=== PATIENT | male | born 1950 | race Caucasian/White ===

== ENCOUNTER 2023-01-09 14:14 | Emergency (ER) | payer MEDICARE, BC ==
[2023-01-09 14:48] LABS: Basophils % (A) 1 %; Eosinophils # (A) 0.2 k/uL (0-0.7); Eosinophils % (A) 3 %; HCT 41.7 % (39.0-53.0); Lymphocytes # (A) 1.7 k/uL (1.0-4.8); Lymphocytes % (A) 28 %; MCH 34.8 pg (25.0-35.0); MCHC 33.6 g/dL (31.0-37.0); MCV 103.6 fL (80.0-100.0); Macrocytosis Slight; Mean Platelet Volume 7.6; Monocytes # (A) 0.5 k/uL (0-1.0); Monocytes % (A) 8 %; Neutrophils # (A) 3.6 k/uL (1.3-7.7); Neutrophils % (A) 58 %; Platelet Count 152 k/uL (150-450); RBC 4.02 m/uL (4.30-5.90); RDW 13.2 % (11.5-15.5); WBC 6.2 k/uL (3.8-10.6)
--- NOTE | 2023-01-09 14:53 | CT ---
EXAMINATION TYPE: CT brain wo con for TPA CT DLP: 1201.6 mGycm, Automated exposure control for dose reduction was used. DATE OF EXAM: 01/09/2023 2:43 PM COMPARISON: None. CLINICAL INDICATION:Male, 72 years old with history of Neuro deficit, acute, stroke suspected, Neuro deficits, LT side. TECHNIQUE: Brain: Axial CT images of the brain were obtained with coronal and sagittal reformats created and rev iewed. Contrast used: None. Oral contrast used: None. FINDINGS: Brain: Extra-axial spaces: No abnormal extra-axial fluid collections. Ventricular system: Diffuse mild prominence likely related to brain volume loss. Cerebral parenchyma: No acute intraparenchymal hemorrhage or mass effect. The molina-white matter int erface appears maintained without clear CT evidence of acute infarct. Mild generalized atrophy and c hronic microvascular ischemic changes. . Cerebellum: No acute abnormality. Mass effect: No evidence of midline shift. Intracranial vasculature: Mild calcification of the siphons portions of the ICAs. No hyperdense MCA s ign suggested. Soft tissues: No acute finding. Partially seen plaque-like sulcation in the superficial soft tissues of the right preauricular region. Calvarium/osseous structures: No depressed skull fracture. Paranasal sinuses and mastoid air cells: Clear Visualized orbits: Orbital contents appear grossly intact. IMPRESSION: 1. No hemorrhage or other acute intracranial CT abnormality. 2. Mild atrophy and chronic microvascular ischemic changes.
[2023-01-09 14:56] LABS: Partial Thromboplastin Time 22.6 sec (22.0-30.0); Prothrombin Time 10.6 sec (10.0-12.5)
--- NOTE | 2023-01-09 14:59 | ED ---
Neuro HPI - General Chief Complaint: Neuro Symptoms/Deficit Stated Complaint: Neuro symptoms Time Seen by Provider: 01/09/23 14:32 Source: patient, RN notes reviewed Mode of arrival: ambulatory Limitations: no limitations - History of Present Illness Is the patient presenting with stroke symptoms?: Yes Initial Comments: 72-year-old male with no prior history of CVA who fell while going to bed last night and got up around 8:30 this morning and felt well but around the same time he started developing some slurred speech left upper extremity weakness and numbness and per his he had some slight asymmetry to left side of his face. 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 He seemed to feel as if he got somewhat better then around 11:00 started having recurrence of the symptoms now he states he believes his face feels better his agrees additionally his left arm is moving much better.. The patient was a code stroke upon arrival I did discuss the initial findings with Dr. Holley. Additional findings the patient does state that he has had testing in the past which showed some abnormalities with a right carotid artery some partial blockage. - Related Data Allergies/Adverse Reactions: Allergies Allergy/AdvReac Type Severity Reaction Status Date / Time No Known Allergies Allergy Verified 01/09/23 14:22 Review of Systems ROS Statement: Those systems with pertinent positive or pertinent negative responses have been documented in the HPI. ROS Other: All systems not noted in ROS Statement are negative. General Exam - General Exam Comments Initial Comments: This is a well-developed well-nourished awake alert oriented 4 male Limitations: no limitations General appearance: alert, in no apparent distress Head exam: Present: other (Patient does have congenital abnormalities or is having his face this is confirmed to be within normal limits per his and she states she believes the left side of the face has resolved to normal appearance) Eye exam: Present: normal appearance, PERRL, EOMI. Absent: scleral icterus, conjunctival injection, periorbital swelling ENT exam: Present: normal exam, mucous membranes moist Neck exam: Present: normal inspection, full ROM, other (No stridor JVD or bruits). Absent: tenderness, meningismus, lymphadenopathy Respiratory exam: Present: normal lung sounds bilaterally. Absent: respiratory distress, wheezes, rales, rhonchi, stridor Cardiovascular Exam: Present: regular rate, normal rhythm, normal heart sounds. Absent: systolic murmur, diastolic murmur, rubs, gallop, clicks GI/Abdominal exam: Present: soft, normal bowel sounds. Absent: distended, tenderness, guarding, rebound, rigid Extremities exam: Present: normal inspection, full ROM, normal capillary refill. Absent: tenderness, pedal edema, joint swelling, calf tenderness Back exam: Present: normal inspection Neurological exam: Present: alert, oriented X3, CN II-XII intact, motor sensory deficit (Slight past pointing noted on the left upper extremity compared to the right) Psychiatric exam: Present: normal affect, normal mood Skin exam: Present: warm, dry, intact, normal color. Absent: rash Stroke MDM - Lab Data Result diagrams: 01/09/23 14:35 01/09/23 14:35 Lab Results 01/09/23 01/09/23 01/09/23 Range/Units 14:35 14:35 14:35 WBC 6.2 (3.8-10.6) k/uL RBC 4.02 L (4.30-5.90) m/uL Hgb 14.0 (13.0-17.5) gm/dL Hct 41.7 (39.0-53.0) % MCV 103.6 H (80.0-100.0) fL MCH 34.8 (25.0-35.0) pg MCHC 33.6 (31.0-37.0) g/dL RDW 13.2 (11.5-15.5) % Plt Count 152 (150-450) k/uL MPV 7.6 Neutrophils % 58 % Lymphocytes % 28 % Monocytes % 8 % Eosinophils % 3 % Basophils % 1 % Neutrophils # 3.6 (1.3-7.7) k/uL Lymphocytes # 1.7 (1.0-4.8) k/uL Monocytes # 0.5 (0-1.0) k/uL Eosinophils # 0.2 (0-0.7) k/uL Basophils # 0.0 (0-0.2) k/uL Macrocytosis Slight PT 10.6 (10.0-12.5) sec INR 1.0 (<1.2) APTT 22.6 (22.0-30.0) sec Sodium 140 (137-145) mmol/L Potassium 4.4 (3.5-5.1) mmol/L Chloride 106 (98-107) mmol/L Carbon Dioxide 23 (22-30) mmol/L Anion Gap 11 mmol/L BUN 24 H (9-20) mg/dL Creatinine 1.21 (0.66-1.25) mg/dL Est GFR (CKD-EPI)AfAm 69 (>60 ml/min/1.73 sqM) Est GFR (CKD-EPI)NonAf 60 (>60 ml/min/1.73 sqM) Glucose 116 H (74-99) mg/dL Calcium 9.3 (8.4-10.2) mg/dL Total Bilirubin 0.6 (0.2-1.3) mg/dL AST 27 (17-59) U/L ALT 25 (4-49) U/L Alkaline Phosphatase 131 H (38-126) U/L Creatine Kinase 70 (55-170) U/L Troponin I (0.000-0.034) ng/mL Total Protein 6.9 (6.3-8.2) g/dL Albumin 4.1 (3.5-5.0) g/dL 01/09/23 Range/Units 14:35 WBC (3.8-10.6) k/uL RBC (4.30-5.90) m/uL Hgb (13.0-17.5) gm/dL Hct (39.0-53.0) % MCV (80.0-100.0) fL MCH (25.0-35.0) pg MCHC (31.0-37.0) g/dL RDW (11.5-15.5) % Plt Count (150-450) k/uL MPV Neutrophils % % Lymphocytes % % Monocytes % % Eosinophils % % Basophils % % Neutrophils # (1.3-7.7) k/uL Lymphocytes # (1.0-4.8) k/uL Monocytes # (0-1.0) k/uL Eosinophils # (0-0.7) k/uL Basophils # (0-0.2) k/uL Macrocytosis PT (10.0-12.5) sec INR (<1.2) APTT (22.0-30.0) sec Sodium (137-145) mmol/L Potassium (3.5-5.1) mmol/L Chloride (98-107) mmol/L Carbon Dioxide (22-30) mmol/L Anion Gap mmol/L BUN (9-20) mg/dL Creatinine (0.66-1.25) mg/dL Est GFR (CKD-EPI)AfAm (>60 ml/min/1.73 sqM) Est GFR (CKD-EPI)NonAf (>60 ml/min/1.73 sqM) Glucose (74-99) mg/dL Calcium (8.4-10.2) mg/dL Total Bilirubin (0.2-1.3) mg/dL AST (17-59) U/L ALT (4-49) U/L Alkaline Phosphatase (38-126) U/L Creatine Kinase (55-170) U/L Troponin I <0.012 (0.000-0.034) ng/mL Total Protein (6.3-8.2) g/dL Albumin (3.5-5.0) g/dL - NIH Stroke Scale 1a. Level of Consciousness: (0) alert 1b. LOC Questions: (0) answers correctly 1c. LOC Commands: (0) performs tasks correctly 2. Best Gaze: (0) normal 3. Visual: (0) no visual loss 4. Facial Palsy: (0) normal symmetrical movement 5a. Motor Arm Left: (0) no drift 5b. Motor Arm Right: (0) no drift 6a. Motor Leg Left: (0) no drift 6b. Motor Leg Right: (0) no drift 7. Limb Ataxia: (1) present 1 limb 8. Sensory: (0) normal 9. Best Language: (0) no aphasia 10. Dysarthria: (0) normal 11. Extinction/Inattention: (0) no abnormality - Medical Decision Making I did discuss case with the patient's also with Dr. 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 Holley. For further evaluation and treatment. The emergency department is notified. I did discuss the case with the transfer center at [facility] Dr. Sheikh to accept an ER physician. Patient be transferred by EMS.Was pt. sent in by a medical professional or institution (Dr., PA, PRESCHOOL HEAD TEACHER, urgent care, hospital, or group home...) When possible be specific @ -No Did you speak to anyone other than the patient for history (EMS, parent, family, police, friend...)? What history was obtained from this source @ -Patient's Did you review nursing and triage notes (agree or disagree)? Why? @ -I reviewed and agree with nursing and triage notes Were old charts reviewed (outside hosp., previous admission, EMS record, old EKG, old radiological studies, urgent care reports/EKG's, group home records)? Report findings @ - old charts were reviewed Differential Diagnosis (chest pain, altered mental status, abdominal pain women, abdominal pain men, vaginal bleeding, weakness, fever, dyspnea, syncope, headache, dizziness, GI bleed, back pain, seizure, CVA, palpatations, mental health, musculoskeletal)? @ -TAHMINA, TIA EKG interpreted by me (3pts min.). @ -As above EKG interpreted by me sinus rhythm 81 NH interval 186 QRS duration 102 QT/QTC 370/407 and complete right bundle-branch block borderline EKG X-rays interpreted by me (1pt min.). @ -None done CT interpreted by me (1pt min.). @ -CT brain and angiography interpreted by me evidence of right middle cervical artery occlusion and left carotid artery occlusion other vascular disease noted.] U/S interpreted by me (1pt. min.). @ -None done What testing was considered but not performed or refused? (CT, X-rays, U/S, labs)? Why? @ -None What meds were considered but not given or refused? Why? @ -None Did you discuss the management of the patient with other professionals (professionals i.e. LIZBETH Suero, PRESCHOOL HEAD TEACHER, lab, RT, psych nurse, social studies teacher, utility arborist, teacher, aoc operations intelligence officer, case consultant)? Give summary @ -Dr. Holley to [facility] stroke that worked patient will be transferred to [facility] intensive care unit Was smoking cessation discussed for >3mins.? @ -No Was critical care preformed (if so, how long)? @ -45 minutes Were there social determinants of health that impacted care today? How? (Homelessness, low income, unemployed, alcoholism, drug addiction, transportation, low edu. Level, literacy, decrease access to med. care, long term, rehab)? @ -No Was there de-escalation of care discussed even if they declined (Discuss DNR or withdrawal of care, Hospice)? DNR status @ -No What co-morbidities impacted this encounter? (DM, HTN, Smoking, COPD, CAD, Cancer, CVA, ARF, Chemo, Hep., AIDS, mental health diagnosis, sleep apnea, morbid obesity)? @ -Carotid vascular disease Was patient admitted / discharged? Hospital course, mention meds given and route, prescriptions, significant lab abnormalities, going to OR and other pertinent info. @ -hospital course patient was transferred to [facility] by ambulance Undiagnosed new problem with uncertain prognosis? @ -TAHMINA Drug Therapy requiring intensive monitoring for toxicity (Heparin, Nitro, Insulin, Cardizem)? @ -No Were any procedures done? @ -No Diagnosis/symptom? @ -CVA Acute, or Chronic, or Acute on Chronic? @ -Acute Uncomplicated (without systemic symptoms) or Complicated (systemic symptoms)? @ -Up located Side effects of treatment? @ -No Exacerbation, Progression, or Severe Exacerbation? @ -No Poses a threat to life or bodily function? How? (Chest pain, [place], [place], pneumonia, PE, COPD, DKA, ARF, appy, cholecystitis, CVA, Diverticulitis, Homicidal, Suicidal, threat to staff... and all critical care pts) @ -Possible threat, CVA/TIA - Radiology Data interpreted by me: Imaging chest x-ray is canceled this time CT angios shows evidence of right menstrual artery occlusion and left carotid artery occlusion and vascular disease. No evidence of acute bleeding. This is interpreted by me - EKG Data -: EKG Interpreted by Me Past Medical History Past Medical History: No Reported History History of Any Multi-Drug Resistant Organisms: None Reported Past Surgical History: Appendectomy, Cholecystectomy, Orthopedic Surgery Past Psychological History: No Psychological Hx Reported Smoking Status: Never smoker Past Alcohol Use History: None Reported Past Drug Use History: None Reported Course Vital Signs 01/09/23 14:18 Temperature 97.7 F Pulse Rate 82 Respiratory 18 Rate Blood Pressure 202/66 O2 Sat by Pulse 98 Oximetry Critical Care Time Critical Care Time: Yes Total Critical Care Time: 45 Disposition Clinical Impression: Cerebrovascular accident (CVA) Disposition: ADMITTED IP TO THIS HOSP Condition: Serious Referrals: Manny Staples DO [Primary Care Provider] - 1-2 days Decision Date: 01/09/23 Decision Time: 15:15
[2023-01-09] MEDS ORDERED: ASPIRIN 81 MG PO STA (15:03)
[2023-01-09] MEDS ORDERED: TICAGRELOR 90 MG TAB PO STA (15:03)
[2023-01-09 15:16] LABS: ALT 25 U/L (4-49); AST 27 U/L (17-59); African American GFR (CKD) 69 (>60 ml/min/1.73 sqM); Albumin 4.1 g/dL (3.5-5.0); Alkaline Phosphatase 131 U/L (38-126); Anion Gap 11 mmol/L; Blood Urea Nitrogen 24 mg/dL (9-20); Calcium 9.3 mg/dL (8.4-10.2); Carbon Dioxide 23 mmol/L (22-30); Chloride 106 mmol/L (98-107); Creatine Kinase 70 U/L (55-170); Glucose 116 mg/dL (74-99); Non-African American GFR(CKD) 60 (>60 ml/min/1.73 sqM); Potassium 4.4 mmol/L (3.5-5.1); Sodium 140 mmol/L (137-145); Total Bilirubin 0.6 mg/dL (0.2-1.3); Total Protein 6.9 g/dL (6.3-8.2)
--- NOTE | 2023-01-09 16:18 | CT ---
EXAMINATION TYPE: CT angio head neck CT DLP: 592.8 mGycm, Automated exposure control for dose reduction was used. DATE OF EXAM: 01/09/2023 3:00 PM COMPARISON: None. CLINICAL INDICATION:Male, 72 years old with history of Neuro deficit, acute, stroke suspected; PHH, L T side neuro deficits code stroke TECHNIQUE: Axially acquired helical CT angiogram of the head and neck was obtained with contrast. Axi al images are supplemented with 3D reconstructions [facility] NASCET criteria used. Contrast used:65 mL of Isovue 370 with IV Contrast, Oral contrast used: None. FINDINGS: CTA NECK: Moderate to heavy atherosclerotic calcification along the aortic arch. 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 On the right, mild calcification in the proximal subclavian artery without significant stenosis. Righ t CCA is patent. At the bifurcation, there is moderate to heavy mixed atherosclerotic disease at the bifurcation with some extension to the proximal ICA, causing approximately 50% diameter stenosis of t he proximal ICA. The ECA appears patent. ICA is patent to the skull base. On the left, there is heavy calcification at the expected origin of the left common carotid artery, w ith nonopacification of the more distal left CCA consistent with occlusion, very likely chronic. Mode rate to heavy mixed atherosclerotic plaque is seen at the left carotid bifurcation and just distally there is reconstitution of flow in the left external carotid artery and branches, but not the ICA to at least the skull base. The vertebral arteries show mild calcification at their origins without evidence of critical stenosis . The left vertebral is dominant. No dissection or high-grade stenosis is seen. Visualized intracrani al vertebral arteries are patent. Other: Lung apices show no acute infiltrate or pneumothorax. No acute osseous abnormality is seen. De generative changes are present. Soft tissue plaque-like calcification in the right lateral facial sof t tissues, with well-corticated areas of decreased, near groundglass attenuation in the right mandibl e, suggestive of a chronic process which may be postoperative and/or something like fibrous dysplasia . CTA HEAD: Intracranial vertebral arteries, basilar artery, major branches in the posterior fossa, and bilateral gold leaf laborer appear to be present. There is a patent left posterior communicating artery. Siphon portion of the left ICA is calcified and non-opacified consistent with occlusion which is likely chronic. There is reconstitution of flow seen in the left MCA and NILSON, without evidence of significant stenosis or o cclusion. Anterior communicating artery appears patent. The right ICA shows mild/moderate calcificati on throughout the siphon portion without critical stenosis seen. Right MCA and NILSON appear patent. No sizable intracranial aneurysm is detected. Other: No evidence to suggest acute dural venous sinus thrombosis. Left transverse and sigmoid sinus appears relatively diminutive, and the left internal jugular vein is not opacified, likely chronic fi ndings. No evidence of acute intracranial hemorrhage, mass effect, or midline shift. Please refer to separate CT head report. IMPRESSION: 1. No evidence of acute intracranial large vessel occlusion. 2. No dissection or sizable aneurysm detected. 3. Moderate to heavy atherosclerotic calcification along the aortic arch. 4. 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 5. Right CCA is patent. At the bifurcation, there is moderate to heavy mixed atherosclerotic disease associated with approximately 50% diameter stenosis of the proximal right ICA. 6. On the left, there is heavy calcification at the expected origin of the left common carotid arter y, with nonopacification of the left CCA and ICA consistent with occlusion, very likely chronic. 7. Moderate to heavy mixed atherosclerotic plaque at the left carotid bifurcation, with reconstituti on of flow in the left external carotid artery, but not the proximal ICA. 8. Vertebral arteries show mild calcification at their origins without evidence of critical stenosis . The left vertebral is dominant.
[2023-01-09 16:23] VITALS: BP 182/81; PULSE 76; RESP 14
[2023-01-09 16:46] VITALS: TEMP 98.2
== END 2023-01-09 16:32 | disposition other institution (70) ==
LOC: SUPCPDRO 14:14 → EC 14:14
DX: I63.9 Cerebral infarction, unspecified (principal); I65.23 Occlusion and stenosis of bilateral carotid arteries; I45.10 Unspecified right bundle-branch block
CPT/HCPCS: 36415; 93005; 80053; 82550; 84484; 85025; 85610; 85730; 70496; 70450; 70498; 99291; Q9967